=== PATIENT | female | born 1950 | race Caucasian/White ===

== ENCOUNTER → 2017-07-26 | Outpatient (CLI) | payer MEDICARE, OTHER ==
[~2017-07-26] MED LIST: ASPIR 8181 MG PO; CARVEDILOL3.125 MG PO; COLACE100 MG PO; COREG3.125 MG PO; COREG6.25 MG PO; FERREX 150 FORT1 CAP PO; GLUCOPHAGE XR500 MG; GLUCOPHAGE XR500 MG PO; GLUCOPHAGE1000 MG PO; GLUCOTROL5 MG PO; HYDROCODONE-AP1 EAC6 PO; LASIX 20 MG TAB20 MG PO; LASIX 40 MG TAB40 M2 PO; LEVAQUIN 500 M500 M2 PO; LIPITOR 20 MG T20 M1 PO; LISINOPRIL10 MG PO; METFORMIN HCL500 MG PO; NITROSTAT0.4 M1 SL; PACERONE 200 M200 M1 PO; PIOGLITAZONE15 MG PO; POTASSIUM20; POTASSIUM20 PO; PREDNISONE 10 M10 MG PO; TYLENOL325 MG PO; VENLAFAXIN75 MG/1 T2 PO; ZANTAC 150MG T150 MG PO
== END ==
LOC: M.LAB 10:25
DX: R94.6 Abnormal results of thyroid function studies (principal); R00.0 Tachycardia, unspecified; I10 Essential (primary) hypertension; I25.10 Atherosclerotic heart disease of native coronary artery without angina pectoris; I48.91 Unspecified atrial fibrillation

== ENCOUNTER 2019-02-06 05:32 | Observation (INO) | payer MEDICARE, OTHER ==
[~2019-02-06] VITALS: Ht 165.1 cm; Wt 77.6 kg
[2019-02-06 05:37] VITALS: BP 161/82
[2019-02-06] MEDS ORDERED: LISINOPRIL2.5 MG PO (05:55)
[2019-02-06] MEDS ORDERED: ROCALTROL0.25 MCG PO (05:55)
[2019-02-06] MEDS ORDERED: VITAMIN D22000 UNIT PO (05:56)
[2019-02-06] MEDS ORDERED: VENTOLIN HFA 1818 GM INH (05:57)
[2019-02-06] MEDS ORDERED: ALBUTEROL (05:58)
[2019-02-06] MEDS ORDERED: NOVOLOG FL100 UNIT/M (05:59)
[2019-02-06] MEDS ORDERED: BASAGLAR K100 UNIT/1 (06:00)
[2019-02-06] MEDS ORDERED: SODIUM BICARBONATE PO (06:01)
--- NOTE | 2019-02-06 06:55 | NUR ---
THIS NURSE RECEIVED REPORT FROM SHUKRI MESA. THIS NURSE TO ASSUME PT CARE AT THIS TIME.
[2019-02-06 07:12] LABS: ABSOLUTE BASOPHILS 0.1 thou/uL (0.0-0.2); ABSOLUTE EOSINOPHILS 0.2 thou/uL (0.0-0.7); ABSOLUTE MONOCYTES 0.3 thou/uL (0.0-1.2); BASOPHILS 0.9 %; EOSINOPHILS 3.4 %; HEMATOCRIT 35.4 % (37.0-47.0); HEMOGLOBIN 11.9 gm/dL (12.0-15.0); LYMPHOCYTES 15.5 %; MCH 30.7 pg (26.0-34.0); MCHC 33.8 g/dL (28.0-37.0); MCV 90.9 fL (80.0-100.0); MONOCYTES 4.8 %; MPV 8.2 fl. (7.2-11.1); NUCLEATED RBCS 0 /100WBC; PLATELET COUNT* 233 thou/uL (150-400); POLYS 75.4 %; RBC 3.89 mil/uL (4.20-5.00); RDW-CV 14.1 % (10.5-14.5); WBC 6.7 thou/uL (4.0-11.0)
[2019-02-06 07:20] LABS: CALCIUM 8.3 mg/dL (8.5-10.1); CREATININE 1.8 mg/dL (0.6-1.3); POTASSIUM 4.5 mmol/L (3.5-5.1)
[2019-02-06 07:25] LABS: ALBUMIN 3.2 g/dL (3.4-5.0); TOTAL BILIRUBIN 0.2 mg/dL (<0.1-1.0); TOTAL PROTEIN 6.1 g/dL (6.4-8.2)
--- NOTE | 2019-02-06 08:05 | NUR ---
REPORT GIVEN TO SHUKRI WADDELL WHO IS TO ASSUME PT CARE INPATIENT NURSE.
[2019-02-06 08:07] VITALS: BP 168/81
--- NOTE | 2019-02-06 09:49 | EKG ---
[place] [address] ELECTROCARDIOGRAM REPORT Name: TAMIKO CASTILLO Room: [address] ADM IN .R.#: [id number] Admission: 02/06/19 Attend Phys: Rosa Elena Mckinnon MD Discharge: Date of : 52 Report #: [id number] THIS REPORT FOR: //name// [facility] ED Test Date: 2019-02-06 Test Time: 07:12:10 Pat Name: TAMIKO CASTILLO Department: Room: [facility] Gender: F Riding Coach: [facility] : 1950 Requested By: Glo Lima Order Number: [id number] Reading MD: Murray Remy Measurements Intervals [place] Rate: 109 P: 76 CO: 134 QRS: 40 QRSD: 96 T: 45 QT: 353 QTc: 476 Interpretive Statements Sinus tachycardia Ventricular premature complex Probable left atrial enlargement Borderline T abnormalities, lateral leads Borderline prolonged QT interval Compared to ECG 03/15/2016 09:02:13 Ventricular premature complex(es) now present Electronically Signed On 02-06-2019 9:48:41 [facility] by Murray Remy [email or web address] <ELECTRONICALLY SIGNED> By: Murray Remy MD, FACC 02/06/19 0948 1 1 Murray Remy MD, [facility] /EPI
--- NOTE | 2019-02-06 10:53 | NUR ---
ANA informed that pt needed a RW for dc today. SW spoke with pt who was in agreement with plan for SW to arrange. ANA called [facility] and spoke with Melissa who approved through insurance and for RW to be issued from supply closet. ANA informed therapy of approval for RW and Marilyn to eval pt and provide RW. Order in pt chart. No HH or OP therapy follow up needs at this time according to pt nurse. [facility] [phone]
[2019-02-06] MEDS ORDERED: HYDROCODON-ACE1 EAC7 PO (11:03)
[2019-02-06 11:08] VITALS: BP 168/81
--- NOTE | 2019-02-06 13:44 | NUR ---
PT DISCHARGED TO HOME WITH ORTHO FOLLOW UP SEEING 02/08-02/09 OUTPATIENT. DISCHARGED AT 1345 WITH SON BY WHEELCHAIR. WALKER SENT WITH PT. IV OUT. SCRIPT EFAXED TO PHARMACY. PAIN CONTROLLED. IMMOBILIZER IN PLACE. PERSONAL BELONGINGS SENT WITH PT.
== END 2019-02-06 13:54 | disposition home or self-care (01) ==
LOC: M.ERS 05:32 → M.ORTHSURG 06:43 → M.TBA-ER 06:43 → M.ORTHSURG 06:43
PROVIDERS: Emergency Medicine; ADMIT Internal Medicine
DX: S82.031A Displaced transverse fracture of right patella, initial encounter for closed fracture (principal); W10.9XXA Fall (on) (from) unspecified stairs and steps, initial encounter; Y93.89 Activity, other specified; Y92.89 Other specified places as the place of occurrence of the external cause; J44.9 Chronic obstructive pulmonary disease, unspecified; I12.9 Hypertensive chronic kidney disease with stage 1 through stage 4 chronic kidney disease, or unspecified chronic kidney disease; E11.22 Type 2 diabetes mellitus with diabetic chronic kidney disease; N18.4 Chronic kidney disease, stage 4 (severe); I25.10 Atherosclerotic heart disease of native coronary artery without angina pectoris; F41.1 Generalized anxiety disorder; K21.9 Gastro-esophageal reflux disease without esophagitis; K58.9 Irritable bowel syndrome, unspecified; D63.1 Anemia in chronic kidney disease; Z79.4 Long term (current) use of insulin; Z79.899 Other long term (current) drug therapy

== ENCOUNTER 2019-02-13 10:33 | Inpatient (IN) | payer MEDICARE, OTHER ==
--- NOTE | ~2019-02-13 | OP ---
[address] [address] OPERATIVE REPORT Name: TAMIKO CASTILLO Room: [address] IN M.R.#: [id number] Admission: 02/13/19 Attend Phys: Brandon Manzano Discharge: 02/15/19 Date of : 52 Report #: [id number] THIS REPORT FOR: //name// CC: Brandon Solano PREOPERATIVE DIAGNOSIS: Right patellar fracture, comminuted. POSTOPERATIVE DIAGNOSIS: Right patellar fracture, comminuted. PROCEDURE: Open reduction and internal fixation, right comminuted patellar fracture. SURGEON: Kenn Sims DO GRAIN ELEVATOR OPERATOR: Len De La Cruz DO ANESTHESIA: General. ANTIBIOTICS: Ancef IV. FLUIDS: 1100 mL lactated Ringer's. BLOOD LOSS: 15 mL. COMPLICATIONS: None. SPECIMENS: None. DRAINS: None. CONDITION OF PATIENT: Stable to PACU. IMPLANTS: Amanda 4.0 headless compression screws with 18-gauge cerclage wire screws x 3. INDICATIONS FOR PROCEDURE: The patient presented to [facility] for operative treatment of her right patellar fracture. She was originally seen by my partner, Dr. Chatman on consultation. However, due to the complexity of the case, he asked that I take over care. I had offered to see her in the clinic prior to surgery; however, she only wanted to come to the preoperative area first. I went over with her the diagnosis, treatment options, plan of surgery with reasoning and risks and complications associated. Please see my consultation for full details of the discussion had. After addressing questions that she had or her son had, they stated satisfaction. They acknowledged and accepted the risks and complications. It should be noted that I also explained with her smoking use, she is going to increase the [place] [address] OPERATIVE REPORT Name: TAMIKO CASTILLO Room: [address] IN [facility].#: [id number] Admission: 02/13/19 Attend Phys: Brandon Manzano Discharge: 02/15/19 Date of : 52 Report #: [id number] from baseline, but especially infection, wound healing complications, nonunion, failure of the surgery in general anesthetic and decreased function. At this point in time, she does not seem motivated to quit. I will continue to offer resources and encouragement. They acknowledged and accepted the risks and complications, wished to proceed with surgery as planned and gave consent. DESCRIPTION OF PROCEDURE: I marked the right lower extremity in the presence of the operative team members. Everyone agreed this was correct. She was taken back to the operative suite where a briefing was performed indicating correct patient, procedure, site and antibiotics and that implants were present and sterile. All team members agreed. She was transferred over to the operative table in supine position, well-padded and secured. General anesthetic administered. A well-padded tourniquet was placed proximally on the right lower extremity, which was then sterilely prepped and draped in standard fashion. Timeout was performed indicating correct patient, procedure, site, antibiotics and that implants were present and sterile. All team members agreed. Marked out our incision standard midline, Esmarched extremity and insufflated the tourniquet to 250 mmHg. Scalpel through skin, full thickness flaps down. I identified the patellar fracture, medial retinaculum. Medial and lateral retinacula were disrupted and line transversely. We worked through the fracture. I made sure that we irrigated thoroughly and inspected. 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 There was no evidence of loose body. We then cleaned up our fracture edges, reduced the fracture. There was some comminution; however, the comminution appeared to be able to be contained. We placed the screw going from a medial to lateral direction. This held by comminution and nicely. We then able to place guidewires and confirmed them on multiplanar C-arm imaging. They were in appropriate position and measured, drilled and placed appropriate 4.0 headless compression screws. We were then able to pass the 18 gauge wire through those in a cerclage type fashion for tension band technique and made sure that the apex of that tension band was at the fracture line. We then twisted this down for tensioned appropriately and then cut the excess wire and buried down our tension knot. At that point in time, we took final C-arm x-rays. All provisional fixation and wires were removed. Excellent fracture reduction on multiplanar C-arm imaging and placement of all hardware. We were able to take the knee through range of motion including over 100 degrees of flexion and the fixation was very stable. We saved images and dismissed C-arm, let down tourniquet, total time was 56 minutes. Maintained hemostasis, thoroughly irrigated with normal saline. Medial and lateral retinacular was closed with 0 Vicryl [id number] interrupted. Subcutaneous and skin were closed with 2-0 Monocryl buried deep and a running subcuticular stitch with 3-0 Stratafix and glue. Debriefing performed where we confirmed procedure, blood loss and that all counts were correct and final. All team members agreed. She was placed into sterile dressings that was silver impregnated, soft roll and Gregg and a knee immobilizer, extubated and transferred off the operating table, taken to PACU, stable. [facility] [address] [place] [address] OPERATIVE REPORT Name: TAMIKO CASTILLO Room: [address] IN [facility].#: [id number] Admission: 02/13/19 Attend Phys: Brandon Manzano Discharge: 02/15/19 Date of : 52 Report #: [id number] POSTOPERATIVE COURSE AND EVALUATION: I spoke with her family members per her wishes. Addressed questions they had to their stated satisfaction. She was resting in PACU with stable vital signs, pain controlled, neurovascularly intact. Compartments soft and compressible. No pain with passive stretch. PACU film shows stable internal fixation and fracture reduction. Weightbear as tolerated in the brace, no range of motion. DVT prophylaxis should be both pharmacological and mechanical until instructed otherwise. Pain medication to be taken as directed and again encouraged to decrease smoking. By: 1326 141Mari Sims DO /nt
[~2019-02-13 10:33] MED LIST changes: +ALBUTEROL INH; +BASAGLAR K100 UNIT/1 SUBQ; +HYDROCODON-ACE1 EAC7 PO; +LISINOPRIL2.5 MG PO; +NOVOLOG FL100 UNIT/M SUBQ; +ROCALTROL0.25 MCG PO; +SODIUM BICARBONATE PO; +VENTOLIN HFA 1818 GM INH; +VITAMIN D22000 UNIT PO
[2019-02-13] MEDS ORDERED: ASA81BEC PO (14:48)
[2019-02-13] MEDS ORDERED: ASPIRIN EC325 M1 PO (14:52)
[2019-02-13 20:00] VITALS: BP 180/90
[2019-02-13 21:43] LABS: HEMATOCRIT 31.3 % (37.0-47.0); HEMOGLOBIN 10.3 gm/dL (12.0-15.0); MCH 30.5 pg (26.0-34.0); MCHC 32.9 g/dL (28.0-37.0); MCV 92.7 fL (80.0-100.0); MPV 8.4 fl. (7.2-11.1); NUCLEATED RBCS 0 /100WBC; PLATELET COUNT* 251 thou/uL (150-400); RBC 3.37 mil/uL (4.20-5.00); RDW-CV 14.1 % (10.5-14.5); WBC 6.7 thou/uL (4.0-11.0)
[2019-02-13 21:49] LABS: CALCIUM 8.1 mg/dL (8.5-10.1); CREATININE 2.4 mg/dL (0.6-1.3)
[2019-02-13 22:47] LABS: ABSOLUTE BASOPHILS 0.1 thou/uL (0.0-0.2); ABSOLUTE LYMPHOCYTES 0.3 thou/uL (0.8-5.3); ABSOLUTE MONOCYTES 0.1 thou/uL (0.0-1.2); ABSOLUTE NEUTROPHILS 6.3 thou/uL (1.6-8.1)
[2019-02-13 22:49] LABS: PLATELET ESTIMATE ADEQUATE
[2019-02-14] VITALS: BP 144/65
[2019-02-14 05:00] VITALS: BP 139/61
[2019-02-14 05:20] LABS: HEMATOCRIT 29.1 % (37.0-47.0); MCH 31.1 pg (26.0-34.0); MCHC 34.4 g/dL (28.0-37.0); MCV 90.5 fL (80.0-100.0); MPV 8.1 fl. (7.2-11.1); RBC 3.22 mil/uL (4.20-5.00); RDW-CV 13.4 % (10.5-14.5); WBC 6.7 thou/uL (4.0-11.0)
[2019-02-14 05:29] LABS: CALCIUM 8.5 mg/dL (8.5-10.1); CREATININE 2.2 mg/dL (0.6-1.3)
[2019-02-14 05:37] LABS: POTASSIUM 4.8 mmol/L (3.5-5.1)
--- NOTE | 2019-02-14 07:51 | NUR ---
Extended recovery patient that came to the floor at 1999. She had a ORIF of rt patella fracture. She has a mepilex dressing and immobilizer in place. She is weight bearing as tolerated but has not been out of bed. She has had a lot of urine output,voiding large amounts about every hour. She was medicated for pain x 2. She had a blood sugar of 449 last evening and Felix was notified and also about her elevated BP which orders were recieved. The patient did get 4 units of lantus insulin at bedtime and 20 units of humalog at bedtime. She has been tachy all of this shift but states that her norm is 115. She has been on the continuous pulse ox but it hasn't alarmed. She was 95-97% on roomair. She has had some sleep intermittenly.
[2019-02-14 08:45] VITALS: BP 141/66
[2019-02-14 13:37] VITALS: BP 141/66
--- NOTE | 2019-02-14 16:39 | NUR ---
PATIENT ALERT AND ORIENTED X 4. VITAL SIGNS STABLE ON ROOM AIR. UP WITH STAND BY ASSIST TO THE BATHROOM WITH GAIT BELT AND WALKER. DENIES NAUSEA AT THIS TIME. PAIN BEING MANAGED WITH PO MEDICATION. MEPILEX DRESSING TO RIGHT KNEE CLEAN, DRY AND INTACT. KNEE IMMOBILIZER IN PLACE. FALL PRECAUTIONS IN PLACE AND BED ALARM ON. HOURLY ROUNDS MAINTAINED THROUGHOUT THE SHIFT. CALL LIGHT WITHIN REACH. NURSING WILL CONTINUE TO MONITOR.
[2019-02-14 20:10] VITALS: BP 136/62
[2019-02-15 04:03] LABS: ABSOLUTE EOSINOPHILS 0.1 thou/uL (0.0-0.7); ABSOLUTE LYMPHOCYTES 0.9 thou/uL (0.8-5.3); ABSOLUTE MONOCYTES 0.5 thou/uL (0.0-1.2); ABSOLUTE NEUTROPHILS 4.9 thou/uL (1.6-8.1); BASOPHILS 0.5 %; EOSINOPHILS 1.6 %; MCH 30.4 pg (26.0-34.0); MCHC 33.3 g/dL (28.0-37.0); MCV 91.4 fL (80.0-100.0); MONOCYTES 8.1 %; MPV 8.7 fl. (7.2-11.1); NUCLEATED RBCS 0 /100WBC; PLATELET COUNT* 239 thou/uL (150-400); POLYS 75.8 %; RBC 2.96 mil/uL (4.20-5.00); RDW-CV 13.6 % (10.5-14.5); WBC 6.5 thou/uL (4.0-11.0)
[2019-02-15 04:20] LABS: CALCIUM 7.9 mg/dL (8.5-10.1); CREATININE 2.3 mg/dL (0.6-1.3); POTASSIUM 4.5 mmol/L (3.5-5.1)
--- NOTE | 2019-02-15 05:46 | NUR ---
MEDS GIVEN ORDERED. NO C/O PAIN. IN THE MIDDLE OF THE NIGHT PT CALLED AND STATED "I THINK MY SUGAR IS LOW". BG WAS LESS THAN 29 ON ACCUCHECK. GLOCOSE GEL, APPLE JUICE AND APPLE SAUCE GIVEN. NOTIFIED DOCTOR, ORDER RECEIVED. PT SAID SHE FELT OK AFTER. DRESSING ON RT KNEE C/D/I. IMMOBILIZER IN PLACE, RT LEG ELEVATED ON PILLOW. UP TO THE BATHROOM WITH STANDBY ASSIST. HOURLY ROUNDING COMPLETED. WILL CONTINUE TO MONITOR.
[2019-02-15 08:04] VITALS: BP 148/72
[2019-02-15 09:01] VITALS: BP 148/72
--- NOTE | 2019-02-15 13:22 | NUR ---
PT DISCHARGED AT 1321. IV OUT. PT STABLE. DRESSING C/D/I. IMMOBILIZER IN PLACE UPON DISCHARGE. PAPER SCRIPTS AND CARE NOTES GIVEN. DISCHARGED TO HOME WITH SON.
== END 2019-02-15 13:21 | disposition home or self-care (01) | DRG 515 ==
LOC: M.SUR 10:33 → M.ORTHSURG 19:39
PROVIDERS: ADMIT Family Medicine
PROC: 0QSD04Z Reposition Right Patella with Internal Fixation Device, Open Approach (ICD-10-PCS; principal; 2019-02-13)
DX: S82.041A Displaced comminuted fracture of right patella, initial encounter for closed fracture (principal); E11.00 Type 2 diabetes mellitus with hyperosmolarity without nonketotic hyperglycemic-hyperosmolar coma (NKHHC); N17.9 Acute kidney failure, unspecified; E87.1 Hypo-osmolality and hyponatremia; N18.4 Chronic kidney disease, stage 4 (severe); E87.5 Hyperkalemia; E78.5 Hyperlipidemia, unspecified; W01.0XXA Fall on same level from slipping, tripping and stumbling without subsequent striking against object, initial encounter; E11.22 Type 2 diabetes mellitus with diabetic chronic kidney disease; I12.9 Hypertensive chronic kidney disease with stage 1 through stage 4 chronic kidney disease, or unspecified chronic kidney disease; I25.10 Atherosclerotic heart disease of native coronary artery without angina pectoris; K58.9 Irritable bowel syndrome, unspecified; J44.9 Chronic obstructive pulmonary disease, unspecified; F41.0 Panic disorder [episodic paroxysmal anxiety]; F17.200 Nicotine dependence, unspecified, uncomplicated; F41.1 Generalized anxiety disorder; Z82.49 Family history of ischemic heart disease and other diseases of the circulatory system; I25.2 Old myocardial infarction; Z79.4 Long term (current) use of insulin; Z95.1 Presence of aortocoronary bypass graft; Z79.82 Long term (current) use of aspirin; Y93.89 Activity, other specified; Y92.89 Other specified places as the place of occurrence of the external cause; Z90.711 Acquired absence of uterus with remaining cervical stump; Z83.3 Family history of diabetes mellitus; Z80.59 Family history of malignant neoplasm of other urinary tract organ